=== PATIENT | male | born 1965 | race African-American/Black ===

== ENCOUNTER 2025-06-30 10:05 | Emergency (ER) | payer OTHER ==
--- NOTE | 2025-06-30 10:27 | ED ---
SOB HPI - General Chief Complaint: Shortness of Breath Stated Complaint: Shortness of breath Time Seen by Provider: 06/30/25 10:10 Source: patient, RN notes reviewed Mode of arrival: ambulatory Limitations: no limitations - History of Present Illness Initial Comments: This is a 59-year-old male who presents to the emergency department for shortness of breath. Patient states that he has a history of COPD and this started flaring up on him yesterday. He has some chest tightness associated with this, which he states is typical of COPD exacerbations. Also reports a minor nonproductive cough. He is on a daily maintenance inhaler but cannot recall what this is and states that he ran out of it a couple of days ago. He does not have a nebulizer at home, but states that when he has a flareup and comes to the emergency department he typically gets a nebulizer treatment, which is what helps him the most. MD Complaint: shortness of breath - Related Data Previous Rx's Medication Instructions Recorded Albuterol Sulfate [Albuterol 1 - 2 puff PO Q4-6H PRN #8.5 gm 06/30/25 Sulfate Hfa] Budesonide/Formoterol Fumarate 2 puff INHALATION BID #10.2 gm 06/30/25 [Symbicort 160-4.5 Mcg Inhaler] Ipratropium-Albuterol Nebulize 3 ml INHALATION Q4-6H PRN #90 ml 06/30/25 [Duoneb 0.5 mg-3 mg/3 ml Soln] predniSONE 50 mg PO DAILY 5 Days #5 tab 06/30/25 Allergies Allergy/AdvReac Type Severity Reaction Status Date / Time No Known Allergies Allergy Verified 06/30/25 10:09 Review of Systems ROS Statement: Those systems with pertinent positive or pertinent negative responses have been documented in the HPI. ROS Other: All systems not noted in ROS Statement are negative. Past Medical History Past Medical History: COPD, Hypertension History of Any Multi-Drug Resistant Organisms: None Reported Past Surgical History: No Surgical Hx Reported Past Psychological History: No Psychological Hx Reported Smoking Status: Current every day smoker Past Alcohol Use History: None Reported Past Drug Use History: None Reported General Exam Limitations: no limitations General appearance: alert, in no apparent distress Head exam: Present: atraumatic, normocephalic, normal inspection Respiratory exam: Present: wheezes, decreased breath sounds, prolonged expiratory Cardiovascular Exam: Present: regular rate, normal rhythm Neurological exam: Present: alert, oriented X3, CN II-XII intact Psychiatric exam: Present: normal affect, normal mood Skin exam: Present: warm, dry, intact, normal color. Absent: rash Course Vital Signs 06/30/25 06/30/25 06/30/25 10:06 10:40 10:48 Temperature 97.8 F Pulse Rate 83 83 83 Respiratory 20 Rate Blood Pressure 158/92 O2 Sat by Pulse 98 Oximetry 06/30/25 06/30/25 11:08 11:45 Temperature Pulse Rate 70 90 Respiratory 18 Rate Blood Pressure 164/78 O2 Sat by Pulse Oximetry Medical Decision Making - Medical Decision Making This is a 59 year old male who presents to the emergency department for shortness of breath. Was pt. sent in by a medical professional or institution? @ -No Did you speak to anyone other than the patient for history? @ -No Did you review nursing and triage notes? @ -Yes, and I agree, it is accurate with regards to the patient's symptoms. Were old charts reviewed? @ -No Differential Diagnosis? @ -Differential Dyspnea: Coronary syndrome, arrhythmia, tamponade, asthma, COPD, pulmonary embolism, pneumonia, pneumothorax, pulmonary effusion, anaphylaxis, diabetic ketoacidosis, flailed chest, pulmonary contusion, diaphragmatic rupture, anemia, neuromuscular, this is not meant to be an all-inclusive list. EKG interpreted by me (3pts min.)? @ -EKG interpreted by me demonstrating the following: Sinus rhythm. Ventricular rate 80 bpm, TN interval 170 ms, QRS duration 84 ms, QTc 417 ms. X-rays interpreted by me (1pt min.)? @ -Chest x-ray obtained, my interpretation identifies no localized consolidations or infiltrates. CT interpreted by me (1pt min.)? @ -Not obtained U/S interpreted by me (1pt. min.)? @ -Not obtained What testing was considered but not performed? (CT, X-rays, U/S, labs)? Why? @ -None What meds were considered but not given? Why? @ -None Did you discuss the management of the patient with other professionals? @ -No Did you reconcile home meds? @ -No Was smoking cessation discussed for >3mins.? @ -I discussed smoking cessation for greater than 3 minutes. The risk of smoking were discussed with the patient including but not limited to risks of cancer, stroke, coronary artery disease and COPD. Also discussed with patient were multiple methods of quitting smoking. Lastly we discussed the financial cost of smoking. Was critical care preformed (if so, how long)? @ -No Were there social determinants of health that impacted care today? How? (Homelessness, low income, unemployed, alcoholism, drug addiction, t ransportation, low edu. Level, literacy, decrease access to med. care, alf, rehab)? @ -No Was there de-escalation of care discussed even if they declined? (Discuss DNR or withdrawal of care, Hospice)? @ -No What co-morbidities impacted this encounter? (DM, HTN, Smoking, COPD, CAD, Cancer, CVA, Hep., AIDS, mental health diagnosis, sleep apnea, morbid obesity)? @ -COPD, smoking Was patient admitted / discharged? @ -Discharged. Lab work unremarkable. Chest x-ray reveals no acute findings. 2 DuoNeb breathing treatments administered with improvement in symptoms. He was also given IM Solu-Medrol. I spoke with [facility] pharmacy who advised that he was on the Symbicort daily as a maintenance treatment for the COPD. This was refilled for the patient and a prescription for an albuterol inhaler and 5-day course of prednisone were provided as well. Additionally, patient does not have a nebulizer machine at home. Given that this is what helps him the most, especially in the middle of a flareup, he would benefit from being able to do breathing treatments at home and reduce visits to the emergency department. Documentation filled out to have a nebulizer provided by [facility]. DuoNeb breathing treatments prescribed to be used q4-6hr prn for shortness of breath in conjunction with the nebulizer machine. Patient discharged home in stable condition. Case discussed with ED attending Dr. Calvin. Return precautions reviewed in depth, the patient is instructed to return to the emergency department with any new, worsening, or concerning symptoms. Patient verbalized understanding. Undiagnosed new problem with uncertain prognosis? @ -None Drug Therapy requiring intensive monitoring for toxicity (Heparin, Nitro, Insulin, Cardizem)? @ -None Were any procedures done? @ -None Diagnosis/symptom? @ -COPD exacerbation Acute, or Chronic, or Acute on Chronic? @ -Acute on chronic Uncomplicated (without systemic symptoms) or Complicated (systemic symptoms)? @ -Uncomplicated Side effects of treatment? @ -None Exacerbation, Progression, or Severe Exacerbation] @ -Exacerbation Poses a threat to life or bodily function? @ -No - Lab Data Result diagrams: 06/30/25 11:00 06/30/25 11:00 Lab Results 06/30/25 06/30/25 06/30/25 Range/Units 11:00 11:00 11:00 WBC 4.13 L (4.50-10.00) 10*3/uL RBC 5.09 (4.40-5.60) 10*6/uL Hgb 14.9 (13.0-17.0) g/dL Hct 43.6 (39.6-50.0) % MCV 85.7 (80.0-97.0) fL MCH 29.3 (27.0-32.0) pg MCHC 34.2 (32.0-37.0) g/dL Plt Count 192 (140-440) 10*3/uL MPV 11.3 (9.5-12.2) fL Immature Gran % (Auto) 0 % Neutrophils % 51.5 % Lymphocytes % 35.6 % Monocytes % 9.2 % Eosinophils % 2.7 % Basophils % 1.0 % Immature Gran # 0.00 (0.00-0.04) 10*3/uL Neutrophils # 2.13 (1.80-7.70) 10*3/uL Lymphocytes # 1.47 (0.90-5.00) 10*3/uL Monocytes # 0.38 (0.20-1.00) 10*3/uL Eosinophils # 0.11 (0.04-0.35) 10*3/uL Basophils # 0.04 (0.00-0.10) 10*3/uL Sodium 137 (137-145) mmol/L Potassium 4.4 (3.5-5.1) mmol/L Chloride 105 (98-107) mmol/L Carbon Dioxide 23 (22-30) mmol/L Anion Gap 9 mmol/L BUN 12 (9-20) mg/dL Creatinine 0.88 (0.66-1.25) mg/dL Est GFR (CKD-EPI)AfAm >90 (>60 ml/min/1.73 sqM) Est GFR (CKD-EPI)NonAf >90 (>60 ml/min/1.73 sqM) Glucose 98 (74-99) mg/dL Plasma Lactic Acid Eamon 1.0 (0.7-2.0) mmol/L Calcium 9.0 (8.4-10.2) mg/dL Magnesium 1.9 (1.6-2.3) mg/dL Total Bilirubin 0.6 (0.2-1.3) mg/dL AST 28 (17-59) U/L ALT 18 (4-49) U/L Alkaline Phosphatase 87 (38-126) U/L Troponin I (0.000-0.034) ng/mL NT-Pro-B Natriuret Pep 26 pg/mL Total Protein 7.0 (6.3-8.2) g/dL Albumin 4.1 (3.5-5.0) g/dL 06/30/25 Range/Units 11:00 WBC (4.50-10.00) 10*3/uL RBC (4.40-5.60) 10*6/uL Hgb (13.0-17.0) g/dL Hct (39.6-50.0) % MCV (80.0-97.0) fL MCH (27.0-32.0) pg MCHC (32.0-37.0) g/dL Plt Count (140-440) 10*3/uL MPV (9.5-12.2) fL Immature Gran % (Auto) % Neutrophils % % Lymphocytes % % Monocytes % % Eosinophils % % Basophils % % Immature Gran # (0.00-0.04) 10*3/uL Neutrophils # (1.80-7.70) 10*3/uL Lymphocytes # (0.90-5.00) 10*3/uL Monocytes # (0.20-1.00) 10*3/uL Eosinophils # (0.04-0.35) 10*3/uL Basophils # (0.00-0.10) 10*3/uL Sodium (137-145) mmol/L Potassium (3.5-5.1) mmol/L Chloride (98-107) mmol/L Carbon Dioxide (22-30) mmol/L Anion Gap mmol/L BUN (9-20) mg/dL Creatinine (0.66-1.25) mg/dL Est GFR (CKD-EPI)AfAm (>60 ml/min/1.73 sqM) Est GFR (CKD-EPI)NonAf (>60 ml/min/1.73 sqM) Glucose (74-99) mg/dL Plasma Lactic Acid Eamon (0.7-2.0) mmol/L Calcium (8.4-10.2) mg/dL Magnesium (1.6-2.3) mg/dL Total Bilirubin (0.2-1.3) mg/dL AST (17-59) U/L ALT (4-49) U/L Alkaline Phosphatase (38-126) U/L Troponin I <0.012 (0.000-0.034) ng/mL NT-Pro-B Natriuret Pep pg/mL Total Protein (6.3-8.2) g/dL Albumin (3.5-5.0) g/dL - Radiology Data Radiology results: report reviewed, image reviewed Disposition Clinical Impression: COPD exacerbation, Nicotine dependence Disposition: HOME SELF-CARE Instructions (If sedation given, give patient instructions): COPD (Chronic Obstructive Pulmonary Disease) (ED), How to Use a Nebulizer (ED), How to Use a Nebulizer (DC) Additional Instructions: Return to the emergency department with any new, worsening, or concerning symptoms. Take the prednisone daily for 5 days. Begin using your Symbicort inhaler daily as a maintenance treatment. You can use the albuterol inhaler or DuoNeb breathing treatments every 4-6 hours for shortness of breath. Follow up with your primary care provider in 1-2 days. Prescriptions: Albuterol Sulfate [Albuterol Sulfate Hfa] 1 - 2 puff PO Q4-6H PRN #8.5 gm PRN Reason: Shortness Of Breath Ipratropium-Albuterol Nebulize [Duoneb 0.5 mg-3 mg/3 ml Soln] 3 ml INHALATION Q4-6H PRN #90 ml PRN Reason: Shortness Of Breath predniSONE 50 mg PO DAILY 5 Days #5 tab Budesonide/Formoterol Fumarate [Symbicort 160-4.5 Mcg Inhaler] 2 puff INHALATION BID #10.2 gm Is patient prescribed a controlled substance at d/c from ED?: No Referrals: None,Stated [Primary Care Provider] - 1-2 days [facility],Medicine [NON-STAFF] - 1-2 days [facility] [NON-STAFF] - 1-2 days Forms: [facility] PCPs
[2025-06-30] MEDS: IPRATROPIUM-ALBUTEROL 3 ML NEB INHALATION STA ×2 (10:39→11:44)
--- NOTE | 2025-06-30 10:42 | XR ---
EXAMINATION TYPE: XR chest 2V DATE OF EXAM: 06/30/2025 10:35 AM COMPARISON: None. CLINICAL INDICATION: Male, 59 years old with history of TERRY: Shortness of breath TECHNIQUE: XR chest 2V views of the chest are obtained. FINDINGS: Scattered senescent parenchymal changes noted. Hyperinflation compatible with COPD. No evidence for infiltrate. No evidence for atelectasis. Heart size is stable. Mediastinal structures are stable and grossly unremarkable. No evidence for hilar prominence. Degenerative changes dorsal spine. IMPRESSION: 1. No evidence for acute pulmonary disease. [facility], , 06/30/2025 10:40 AM
[2025-06-30] MEDS: methylPREDNISolone SOD SUCCI 125 MG/2 ML VIAL IM ONE (10:54)
[2025-06-30] MEDS: methylPREDNISolone SOD SUCCI 125 MG/2 ML VIAL IV STA (10:55)
[2025-06-30] MEDS: SODIUM CHLORIDE 0.9% 1,000 ML IV ONE (10:55)
[2025-06-30 11:17] LABS: Basophils # (A) 0.04 10*3/uL (0.00-0.10); Basophils % (A) 1.0 %; Eosinophils # (A) 0.11 10*3/uL (0.04-0.35); Eosinophils % (A) 2.7 %; HCT 43.6 % (39.6-50.0); HGB 14.9 g/dL (13.0-17.0); Lymphocytes # (A) 1.47 10*3/uL (0.90-5.00); Lymphocytes % (A) 35.6 %; MCH 29.3 pg (27.0-32.0); MCHC 34.2 g/dL (32.0-37.0); MCV 85.7 fL (80.0-97.0); Monocytes # (A) 0.38 10*3/uL (0.20-1.00); Monocytes % (A) 9.2 %; Neutrophils # (A) 2.13 10*3/uL (1.80-7.70); Neutrophils % (A) 51.5 %; Platelet Count 192 10*3/uL (140-440); RBC 5.09 10*6/uL (4.40-5.60); RDW 13.2 % (11.5-14.5); WBC 4.13 10*3/uL (4.50-10.00)
[2025-06-30 11:37] LABS: ALT 18 U/L (4-49); AST 28 U/L (17-59); African American GFR (CKD) >90 (>60 ml/min/1.73 sqM); Albumin 4.1 g/dL (3.5-5.0); Alkaline Phosphatase 87 U/L (38-126); Anion Gap 9 mmol/L; Blood Urea Nitrogen 12 mg/dL (9-20); Calcium 9.0 mg/dL (8.4-10.2); Carbon Dioxide 23 mmol/L (22-30); Chloride 105 mmol/L (98-107); Glucose 98 mg/dL (74-99); Magnesium 1.9 mg/dL (1.6-2.3); Non-African American GFR(CKD) >90 (>60 ml/min/1.73 sqM); Potassium 4.4 mmol/L (3.5-5.1); Sodium 137 mmol/L (137-145); Total Protein 7.0 g/dL (6.3-8.2)
[2025-06-30 11:43] LABS: NT-Pro-B-Type Natriuretic Pept 26 pg/mL
[2025-06-30] MEDS: SYMBICORT 160-4.5 MCG INHALER INHALATION STA (11:44)
[2025-06-30] MEDS: BENZONATATE 100 MG CAP PO STA (11:54)
[2025-06-30 12:24] VITALS: BP 158/79; PULSE 87; RESP 16; TEMP 97.4
== END 2025-06-30 12:25 | disposition home or self-care (01) ==
LOC: EC 10:05
DX: J44.1 Chronic obstructive pulmonary disease with (acute) exacerbation (principal); F17.200 Nicotine dependence, unspecified, uncomplicated
CPT/HCPCS: 36415; 94640 ×2; 93005; 83880; 80053; 83605; 83735; 84484; 85025; 71046; 99285; 96374; 96361; J2919